=== PATIENT | male | born 1950 ===

== ENCOUNTER 2024-06-17 19:38 | Emergency (ER) | payer MEDICARE, SELFPAY ==
[2024-06-17 19:40] VITALS: BP 166/92
[2024-06-17 19:51] VITALS: BMI 28.0
--- NOTE | 2024-06-17 19:51 | ED.GENMED ---
History of Present Illness
General
Chief Complaint: Musculo-Skeletal Complaint
Time Seen by Provider: 06/17/24 19:51
History of Present Illness
History of Present Illness:
TIME OF INITIAL ENCOUNTER: 7:50 PM
HPI: The patient presents with right lower extremity discomfort in various locations. Approximately 20 years ago he had a varicose vein surgery in [facility]. He does not have any significant back pain. He has no fevers. He denies any abdominal
pain or chest pain. He took 2 ibuprofen earlier as well as tramadol with minimal improvement.
EXAM:
GENERAL: Well appearing in no distress
HEENT: Moist oral mucosa
CARDIOVASCULAR: No murmurs, normal heart rate, regular rhythm, No chest wall tenderness
PULMONARY: No respiratory distress, breath sounds are clear and equal
ABDOMEN: Soft with no peritoneal signs, no tenderness
NEUROLOGIC: Excellent strength all extremities, no coordination deficits
PSYCHIATRIC: Appropriate mental status, normal insight and judgement
BACK: Negative straight leg raise
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
SKIN: No rash, no lesions
NUMBER AND COMPLEXITY OF PROBLEMS ADDRESSED AT THE ENCOUNTER
� Chronic conditions affecting care: Hyperlipidemia, denies diabetes, had varicose vein surgery to the right lower extremity
� Acute Exacerbation and/or Progression of Chronic Illness: This is an acute problem
� Differential Diagnosis includes: Neuropathy, superficial thrombophlebitis, varicosities, DVT, sciatica
AMOUNT AND/OR COMPLEXITY OF DATA TO BE REVIEWED AND ANALYZED
� I performed an independent evaluation of and my interpretation is:
EKG:
CT:
X-rays:
Laboratory Studies:
Other: Ultrasound imaging shows no blood clot
� Review of other/old records: No old records available for review in [facility]
� Clinical information was obtained by an independent historian: I spoke to the son at bedside
� Prescriptions/Medications Considered but not given:
� Further testing considered but not performed: No direct trauma�will hold off on any x-rays
RISK OF COMPLICATIONS AND/OR MORBIDITY OR MORTALITY OF PATIENT MANAGEMENT
� Social determinants of health affecting care: Lives at home
� Discussion with other providers:
� Escalation of care including admission/observation vs risk of discharge considered: Will try a dose of Tylenol and also check ultrasound imaging. There was no direct trauma
ANY OTHER UPDATES:
9:30 PM: On reassessment, after patient received Tylenol, he reports no improvement of pain. He has already tried ibuprofen and tramadol earlier. Will give a dose of Toradol and also placed on gabapentin. I have also given him contact information
for orthopedics to follow-up with in case this could be coming from his lumbar spine but I feel that would be less likely.
Phy Exam
Physical Exam
Physical Exam:
See HPI
Course
Orders/Labs/Results
Orders:
Orders
06/17/24 19:58
Acetaminophen [Tylenol] 1,000 mg PO NOW STA
US Legs, Right [US Periph Venous LOWER Ext RT] Urgent
Comment:
Reason For Exam: pain
06/17/24 21:32
Ketorolac [Toradol] 30 mg IM NOW STA
06/17/24 21:37
Gabapentin [Neurontin] 300 mg PO NOW STA
Vital Signs
Initial and Last Documented VS:
Initial Vital Signs
Temp Pulse Resp BP Pulse Ox
98.1 F 88 16 166/92 96
06/17/24 19:40 06/17/24 19:40 06/17/24 19:40 06/17/24 19:40 06/17/24 19:40
Last Documented Vital Signs
Temp Pulse Resp BP Pulse Ox
98.1 F 65 18 140/77 96
06/17/24 19:40 06/17/24 21:31 06/17/24 21:31 06/17/24 21:31 06/17/24 21:31
*Critical Care Note
Total Time (30-74mins, 75-104mins- exclusive of procedures): Not Applicable
ED Attending Note
-
Portions of this chart may have been created with voice recognition software.� Occasional wrong word or��sound alike� substitutions may have occurred due to the inherent limitations of voice recognition software.
Discharge Plan
Departure
Patient Disposition: Home (Routine Discharge)
Date of Disposition: 06/17/24
Time of Disposition: 21:30
Patient with high blood pressure during this ER visit?: Yes
Discharge Problem:
Lower extremity pain
Instructions: Neuropathic pain
Prescriptions:
New
gabapentin 300 mg capsule
300 mg PO TID Qty: 21 0RF
Referrals:
Arnol Chen MD [Family Provider] -
Clarence Lizarraga MD [Active] - Follow up in 2-3 days
Activity Restrictions/Additional Instructions:
The cause of your pain is unclear�it possibly could be related to a neuropathy and we can try a prescription of gabapentin. I have also given the contact information for local orthopedist. The ultrasound shows no sign of blood clot. You have
excellent arterial pulses based on physical examination. Follow-up with your primary care doctor.
Interventions
Interventions:
*Risk Screen - Suicide Last Done: 06/17/24 19:40
*General Assessment Last Done: 06/17/24 19:40
*Neglect/Abuse Screening Last Done: 06/17/24 19:40
ED-Musculoskeletal Assessment Last Done: 06/17/24 19:56
Discharge Date and Time
Print Language: [place]
[2024-06-17] MEDS: TYLENOL 1000 MG PO (20:04)
[2024-06-17 21:31] VITALS: BP 140/77
[2024-06-17] MEDS: NEURONTIN 300 MG PO (21:42)
[2024-06-17] MEDS: TORADOL 30 MG IM (21:43)
== END 2024-06-17 21:56 | disposition home or self-care (01) ==
LOC: EMR 19:38
PROVIDERS: EMERGENCY PHYSICIAN Emergency Medicine; FAMILY PHYSICIAN Internal Medicine
DX: M79.604 Pain in right leg (principal); I83.91 Asymptomatic varicose veins of right lower extremity
CPT/HCPCS: 99284; 96372; 93971